=== PATIENT | male | born 2000 | race Caucasian/White ===

== ENCOUNTER 2023-11-14 10:34 | Emergency (ER) | payer OTHER ==
[~2023-11-14] VITALS: Ht 180.3 cm; Wt 72.5 kg
[2023-11-14 10:47] VITALS: TEMP 98.4; O2SAT 100
[2023-11-14 11:22] LABS: CLARITY URINE CLEAR (CLEAR); COLOR URINE YELLOW (YELLOW); GLUCOSE URINE NEGATIVE (NEGATIVE); KETONES URINE NEGATIVE (NEGATIVE); LEUKOCYTE ESTERASE URINE NEGATIVE (NEGATIVE); NITRITE URINE NEGATIVE (NEGATIVE); OCCULT BLOOD URINE NEGATIVE (NEGATIVE); PH URINE 6.5 (4.5-8.0); PROTEIN URINE NEGATIVE (NEGATIVE); SPECIFIC GRAVITY URINE 1.007 (1.005-1.030); UROBILINOGEN URINE 0.2 E.U./dL (0.2-1.0)
[2023-11-14] MEDS: CEFTRIAXONE SODIUM 500MG VIAL IM ONE (11:46)
[2023-11-14] MEDS: LIDOCAINE HCL/PF 1% 10 MG/ML 5ML VIAL INFIL ONE (11:46)
[2023-11-14] MEDS ORDERED: DOXY100T2 MT (11:48)
[2023-11-14 11:53] VITALS: BP 124/78; PULSE 80; RESP 16; O2SAT 99
[2023-11-14] MEDS: PENICILLIN G BENZATHINE 2,400,000 UNITS/4ML SYR IM ONE (12:16)
[2023-11-16 04:08] LABS: CHLAMYDIA TRACHOMATIS NAA Negative (Negative); NEISSERIA GONORRHOEAE NAA Negative (Negative)
== END 2023-11-14 13:02 | disposition home or self-care (01) ==
LOC: ER 10:34
DX: A54.9 Gonococcal infection, unspecified (principal); A53.9 Syphilis, unspecified
CPT/HCPCS: 87491; 87591; 81003; 86592; 87086; 96372; 99283; J0696; J0561; Z7610 ×2